=== PATIENT | female | born 1945 | race Caucasian/White ===

== ENCOUNTER 2019-11-25 17:57 | Inpatient (IN) | payer OTHER ==
[~2019-11-25] VITALS: Ht 152.4 cm; Wt 81.8 kg
--- NOTE | 2019-11-25 18:00 | NUR ---
BIBRA from home c/o chest discomfort and hypoglycemia BS=40 ANALYTICS LEADER A13-327td and ASA 325mg given in the field, new SN=043PN/DL. RR is even and unlabored with NAD noted. Skin is warm and dry. Placed on the monitor. CASSY mckenna at BS for eval.
--- NOTE | 2019-11-25 18:08 | NUR ---
PT SEEN AND EXAMINED BY .
--- NOTE | 2019-11-25 18:10 | NUR ---
TECH AT BEDSIDE FOR EKG.
--- NOTE | 2019-11-25 18:13 | NUR ---
CARE ANALYST AT BEDSIDE FOR XRAY.
[2019-11-25 18:28] LABS: BASOPHILS # (AUTO) 0.1 /CMM (0.0-0.2); BASOPHILS % (AUTO) 0.6 % (0.0-2.0); EOSINOPHILS % (AUTO) 1.8 % (0.0-6.0); HEMATOCRIT 34 % (33-45); LYMPHOCYTES # (AUTO) 1.5 /CMM (0.8-4.8); LYMPHOCYTES % (AUTO) 18.2 % (20.0-44.0); MEAN CORPUSCULAR HGB CONC 32 g/dl (31.0-36.0); MEAN CORPUSCULAR VOLUME 81 fL (82-100); MONOCYTES # (AUTO) 0.6 /CMM (0.1-1.30); MONOCYTES % (AUTO) 7.2 % (2.0-12.0); NEUTROPHILS # (AUTO) 5.8 /CMM (1.8-8.9); NEUTROPHILS % (AUTO) 72.2 % (43.0-81.0); PLATELET COUNT (AUTO) 199 /CMM (150-450); RED BLOOD CELL COUNT(AUTO) 4.23 MIL/uL (4.0-5.2); WHITE BLOOD COUNT (AUTO) 8.1 K/uL (4.3-11.0)
[2019-11-25 18:36] LABS: CALCIUM, SERUM 8.9 mg/dL (8.5-10.1); CREATININE 0.8 mg/dL (0.6-1.3); POTASSIUM 3.4 mmol/L (3.5-5.1)
--- NOTE | 2019-11-25 19:06 | NUR ---
REPORT GIVEN TO NINFA MARTINS FOR KENTRELL.
[2019-11-25] MEDS ORDERED: ASPIRIN 325 MG TABLET PO ONE (19:30)
[2019-11-25] MEDS ORDERED: ASPIRIN 325 MG TABLET ONE (19:33)
[2019-11-25] MEDS ORDERED: DEXTROSE 50%-WATER 50 ML DISP.SYRIN ONE (19:57)
--- NOTE | 2019-11-25 20:02 | NUR ---
D50 IV GIVEN VIA IV PER MD'S VERBAL ORDER FOR 45 BLOOD SUGAR.
--- NOTE | 2019-11-25 20:21 | NUR ---
COIVD SWAB COLLECTED AND SENT TO THE LAB.
[2019-11-25] MEDS ORDERED: FUROSEMIDE 40 MG/4 ML VIAL IV ONE (20:30)
[2019-11-25] MEDS ORDERED: DEXTROSE 50%-WATER 50 ML DISP.SYRIN IVP ONE (20:30)
[2019-11-25] MEDS ORDERED: FUROSEMIDE 40 MG/4 ML VIAL ONE (20:37)
--- NOTE | 2019-11-25 21:03 | NUR ---
CALLED [facility], PAGED JULIANA
--- NOTE | 2019-11-25 21:51 | NUR ---
PATIENT AMBULATED TO RESTROOM WITH A STEADY GAIT.
[2019-11-25] MEDS ORDERED: ACETAMINOPHEN 325 MG TABLET PO PRN (22:00)
[2019-11-25] MEDS ORDERED: POTASSIUM CL. PREMIX PERIPHER. 50 ML IV SCH (22:00)
[2019-11-25] MEDS ORDERED: Z GUARD REMEDY 2 OZ OINT TP PRN (22:00)
[2019-11-25] MEDS ORDERED: ONDANSETRON HCL/PF 4 MG/2 ML VIAL IVP PRN (22:00)
[2019-11-25] MEDS ORDERED: ZOLPIDEM TARTRATE 5 MG TABLET PO PRN (22:00)
[2019-11-25] MEDS ORDERED: MAG HYDROX/AL HYDROX/SIMETH 30 ML UDC PO PRN (22:00)
[2019-11-25] MEDS ORDERED: MAGNESIUM HYDROXIDE 30 ML UDC PO PRN (22:00)
--- NOTE | 2019-11-25 22:34 | NUR ---
[phone] JAMARI, GRAND SON
--- NOTE | 2019-11-25 22:42 | NUR ---
BLU IS GRANDSON, PHONE # [phone]
--- NOTE | 2019-11-25 22:43 | NUR ---
SEEN BY JULIANA ARCE
--- NOTE | 2019-11-25 22:53 | NUR ---
PATIENT ATE 1.5 TUNA SANDWICHES
--- NOTE | 2019-11-25 23:07 | NUR ---
REPORT GIVEN TO LISA OCASIO FOR KENTRELL.
[2019-11-25 23:17] VITALS: BP 156/83
--- NOTE | 2019-11-25 23:17 | NUR ---
LINEN SORTER OPENING NOTES RECEIVED PATIENT FROM E.RSantosh ON A STRETCHER, AWAKE, CONSCIOUS, COOPERATIVE, A/0 X4, ABLE TO AMBULATE BY HER SELF, BREATHING AT ROOM AIR, UNLABORED BREATHING, NO SIGNS OF RESPIRATORY DISTRESS, IV ACCESS ON LEFT AC #20G, V/S TAKEN, BP- 156/83, HR- 87, T- 98.0, RR- 18, O2 SAT 96%, SIDE RAILS UP FOR SAFETY,
--- NOTE | 2019-11-26 01:15 | NUR ---
PRODUCTION CLOTH CUTTER NOTES TALKED TO DR. ANDREWS. TOLD HIM WE ATTEMPTED TWICE IV INSERTION FOR HER POTASSIUM CHLORIDE MEDICATION. PATIENT REFUSED ANOTHER INSERTION. I ASKED DR. ANDREWS IF WE CAN SWITCH TO PO MED INSTEAD. HE TOLD ME TO ORDER PO 40 MEQ KCL.
[2019-11-26] MEDS ORDERED: POTASSIUM CHLORIDE 20 MEQ TAB.PRT.SR PO ONE (01:30)
[2019-11-26 04:00] VITALS: BP 136/86
[2019-11-26 06:41] LABS: BASOPHILS % (AUTO) 0.6 % (0.0-2.0); EOSINOPHILS % (AUTO) 1.8 % (0.0-6.0); HEMATOCRIT 35 % (33-45); HEMOGLOBIN 11.3 g/dL (11.5-14.8); LYMPHOCYTES # (AUTO) 1.6 /CMM (0.8-4.8); LYMPHOCYTES % (AUTO) 20.2 % (20.0-44.0); MEAN CORPUSCULAR HGB CONC 32 g/dl (31.0-36.0); MEAN CORPUSCULAR VOLUME 79 fL (82-100); MONOCYTES # (AUTO) 0.6 /CMM (0.1-1.30); MONOCYTES % (AUTO) 7.4 % (2.0-12.0); NEUTROPHILS # (AUTO) 5.7 /CMM (1.8-8.9); PLATELET COUNT (AUTO) 223 /CMM (150-450); WHITE BLOOD COUNT (AUTO) 8.2 K/uL (4.3-11.0)
[2019-11-26 06:55] LABS: CALCIUM, SERUM 9.2 mg/dL (8.5-10.1); CREATININE 0.7 mg/dL (0.6-1.3); MAGNESIUM 2.1 mg/dL (1.8-2.4); PHOSPHORUS 3.3 mg/dL (2.5-4.9); POTASSIUM 3.9 mmol/L (3.5-5.1)
--- NOTE | 2019-11-26 06:58 | NUR ---
ELECTROSTATIC POWDER COATING TECHNICIAN CLOSING NOTES ENDORSED PATIENT AWAKE, CONSCIOUS, COOPERATIVE, A/0 X4, ABLE TO AMBULATE BY HER SELF, BREATHING AT ROOM AIR, UNLABORED BREATHING, NO SIGNS OF RESPIRATORY DISTRESS, IV ACCESS ON LEFT AC #20G, NO COMPLAINTS OF PAIN, DUE MEDS GIVEN, SIDE RAILS UP FOR SAFETY,
[2019-11-26 08:00] VITALS: BP 145/74
--- NOTE | 2019-11-26 08:00 | NUR ---
SCARFING MACHINE OPERATOR OPENING NOTES RECEIVED PATIENT AWAKE, CONSCIOUS, COOPERATIVE, A/0 X4, ABLE TO AMBULATE BY HER SELF,WITH BRP.VINCENTIAN SPEAKING.BREATHING ON ROOM AIR, UNLABORED BREATHING, NO SIGNS OF RESPIRATORY DISTRESS, IV ACCESS ON LEFT AC #20G, DENIES CHEST PAIN ON TELE WITH SR HR 86. CALL LIGHT PLACED WITHIN REACH.
[2019-11-26] MEDS: POTASSIUM CHLORIDE 20 MEQ TAB.PRT.SR PO SCH ×3 (08:42→10:53)
[2019-11-26] MEDS: FUROSEMIDE 40 MG/4 ML VIAL IV SCH ×3 (08:42→16:23)
[2019-11-26] MEDS: ASPIRIN 81 MG TAB.CHEW PO SCH (08:42)
[2019-11-26] MEDS: ENOXAPARIN SODIUM 40 MG/0.4 ML DISP.SYRIN SQ SCH (08:43)
[2019-11-26] MEDS ORDERED: FUROSEMIDE 40 MG/4 ML VIAL IV SCH (09:00)
[2019-11-26] MEDS ORDERED: MEMA10TA56 PO (09:21)
[2019-11-26] MEDS ORDERED: LEVO25TA9 PO (09:21)
[2019-11-26] MEDS ORDERED: INSU100V36 SQ (09:21)
[2019-11-26] MEDS ORDERED: CARV3.122 PO (09:21)
[2019-11-26] MEDS ORDERED: LISI-603 PO (09:21)
[2019-11-26] MEDS ORDERED: ASPI-1169 PO (09:21)
[2019-11-26] MEDS ORDERED: ATOR40TA PO (09:21)
[2019-11-26] MEDS ORDERED: CLOP75TA15 PO (09:21)
[2019-11-26] MEDS ORDERED: FURO20TA4 PO (09:21)
[2019-11-26] MEDS ORDERED: SENN-175 PO (09:21)
[2019-11-26] MEDS ORDERED: DEXTROSE 50%-WATER 50 ML DISP.SYRIN IV PRN (11:30)
[2019-11-26] MEDS: INSULIN REGULAR, HUMAN 100 UNIT/ML 3 ML VIAL SQ PRN ×2 (11:54→21:24)
--- NOTE | 2019-11-26 12:00 | NUR ---
Pt brought down for CT ANGIO with 3D image. Consent signed. PO Meds due at 11AM held at this time and will administer as soon as she comes back from CT.
[2019-11-26] MEDS ORDERED: IV NS 0.9% 250 ML IV ONE (12:09)
[2019-11-26] MEDS ORDERED: IOHEXOL-350 100 ML VIAL IV ONE (12:09)
[2019-11-26] MEDS ORDERED: METOPROLOL TARTRATE INJ 5 MG/5 ML AMPUL ONE ×2 (12:14→12:42)
[2019-11-26] MEDS: BLOOD SUGAR DIAGNOSTIC 1 EACH STRIP IN SCH ×3 (12:18→21:15)
[2019-11-26] MEDS: METOPROLOL TARTRATE INJ 5 MG/5 ML AMPUL IVP PRN ×8 (12:28→13:03)
[2019-11-26] MEDS ORDERED: NITROGLYCERIN 0.4 MG/TAB BOTTLE SL ONE (12:30)
--- NOTE | 2019-11-26 13:26 | NUR ---
PT CAME BACK FROM CT WITH STABLE V/S VIA WHEELCHAIR .PT WENT TO THE BATHROOM.WILL ADMINISTER HER PO MEDS.
[2019-11-26] MEDS: CARVEDILOL 3.125 MG TABLET PO SCH ×2 (14:08→21:15)
[2019-11-26] MEDS: LEVOTHYROXINE SODIUM 25 MCG TABLET PO SCH (14:08)
[2019-11-26] MEDS: LISINOPRIL (20MG) 20 MG TABLET PO SCH (14:08)
[2019-11-26] MEDS: CLOPIDOGREL BISULFATE 75 MG TABLET PO SCH (14:09)
[2019-11-26] MEDS: MEMANTINE HCL 5 MG TABLET PO SCH (14:09)
[2019-11-26 15:27] VITALS: BP 112/53
--- NOTE | 2019-11-26 18:39 | NUR ---
PT DENIES ANY CHEST PAIN DURING THE SHIFT.AMBULATING IN THE HALLWAY AND HER ROOM WITH NO DISTRESS NOTED. WILL CONTINUE TO MONITOR.CALL LIGHT PLACED WITHIN REACH.
[2019-11-26 20:00] VITALS: BP_SYST 133; BP_DIAS 64; BP_DIAS 71
--- NOTE | 2019-11-26 20:00 | NUR ---
RN NOTES RECEIVED PT. AWKE ON BED, A/OX4, AMBULATORY, ICELANDIC SPEAKING, SR WITH BBB ON TELE MONITOR HR-75, NOT IN DISTRESS, NO PAIN NOTED, CALL LIGHT WITHIN REACH, SIDERAILSUPX2, CONTINUE TO MONITOR
[2019-11-26] MEDS: SENNOSIDES 8.6 MG TABLET PO SCH ×2 (21:00→21:15)
--- NOTE | 2019-11-26 21:00 | NUR ---
RN NOTES PT. REFUSED TO TAKE HER SENOKOT 17.2MG PO, PT STATED THAT "SHE TAKE IT IN THE MORNING"
[2019-11-26] MEDS: ATORVASTATIN 40 MG TABLET PO SCH (21:14)
--- NOTE | 2019-11-26 21:15 | NUR ---
RN NOTES COMPLAINED OF HEADACHE, TYLENOL 650MG PO GIVEN ORDERED
[2019-11-27] VITALS: BP 103/68
[2019-11-27 04:00] VITALS: BP 134/74
[2019-11-27] MEDS: HYDROCODONE/APAP 5/325MG TABLET PO PRN ×3 (04:00→16:07)
--- NOTE | 2019-11-27 06:40 | NUR ---
RN NOTES AWAKE, MORNING CARE RENDERED, DENIES PAIN, NO SOB, CALL LIGHT WITHIN REACH, SIDERAILSUPX2, PT. NEEDS ATTENDED
[2019-11-27 06:44] LABS: BASOPHILS # (AUTO) 0.1 /CMM (0.0-0.2); BASOPHILS % (AUTO) 0.9 % (0.0-2.0); HEMATOCRIT 37 % (33-45); HEMOGLOBIN 11.8 g/dL (11.5-14.8); LYMPHOCYTES # (AUTO) 1.7 /CMM (0.8-4.8); LYMPHOCYTES % (AUTO) 24.8 % (20.0-44.0); MEAN CORPUSCULAR HGB CONC 32 g/dl (31.0-36.0); MEAN CORPUSCULAR VOLUME 80 fL (82-100); MONOCYTES # (AUTO) 0.6 /CMM (0.1-1.30); MONOCYTES % (AUTO) 8.9 % (2.0-12.0); NEUTROPHILS # (AUTO) 4.3 /CMM (1.8-8.9); NEUTROPHILS % (AUTO) 62.4 % (43.0-81.0); PLATELET COUNT (AUTO) 230 /CMM (150-450); RED BLOOD CELL COUNT(AUTO) 4.64 MIL/uL (4.0-5.2); WHITE BLOOD COUNT (AUTO) 6.8 K/uL (4.3-11.0)
[2019-11-27] MEDS: LEVOTHYROXINE SODIUM 25 MCG TABLET PO SCH (06:48)
[2019-11-27] MEDS: INSULIN REGULAR, HUMAN 100 UNIT/ML 3 ML VIAL SQ PRN ×3 (06:50→22:06)
[2019-11-27] MEDS: BLOOD SUGAR DIAGNOSTIC 1 EACH STRIP IN SCH ×4 (06:51→22:06)
[2019-11-27 07:14] LABS: ALANINE AMINOTRANSFERASE 37 U/L (12-78); ALBUMIN 3.7 g/dL (3.4-5.0); ALKALINE PHOSPHATASE 122 U/L (46-116); ASPARTATE AMINOTRANSFERASE 26 U/L (15-37); BILIRUBIN,TOTAL 0.6 mg/dL (0.2-1.0); CALCIUM, SERUM 9.4 mg/dL (8.5-10.1); CARBON DIOXIDE 31 mmol/L (21-32); CHLORIDE 98 mmol/L (98-107); CREATININE 0.9 mg/dL (0.6-1.3); GLUCOSE 155 mg/dL (74-106); MAGNESIUM 2.3 mg/dL (1.8-2.4); PHOSPHORUS 5.1 mg/dL (2.5-4.9); POTASSIUM 4.7 mmol/L (3.5-5.1); SODIUM SERUM 136 mmol/L (136-145); TOTAL PROTEIN, SERUM 7.1 g/dL (6.4-8.2); UREA NITROGEN, BLOOD 24 mg/dL (7-18)
[2019-11-27 08:00] VITALS: BP 126/56
--- NOTE | 2019-11-27 08:00 | NUR ---
STRAIGHTENER HAND OPENING NOTES RECEIVED PATIENT AWAKE, CONSCIOUS, COOPERATIVE, A/0 X4, ABLE TO AMBULATE BY HER SELF,WITH BRP.BELGIAN SPEAKING.BREATHING ON ROOM AIR, UNLABORED BREATHING, NO SIGNS OF RESPIRATORY DISTRESS, IV ACCESS ON LEFT AC #20G, DENIES CHEST PAIN ON TELE WITH SR HR 86. CALL LIGHT PLACED WITHIN REACH.
[2019-11-27] MEDS ORDERED: CARVEDILOL 3.125 MG TABLET PO SCH (09:00)
[2019-11-27] MEDS: MEMANTINE HCL 5 MG TABLET PO SCH (09:06)
[2019-11-27] MEDS: ASPIRIN 81 MG TAB.CHEW PO SCH (09:06)
[2019-11-27] MEDS: SENNOSIDES 8.6 MG TABLET PO SCH ×2 (09:06→21:48)
[2019-11-27] MEDS: CLOPIDOGREL BISULFATE 75 MG TABLET PO SCH (09:06)
[2019-11-27] MEDS: LISINOPRIL (20MG) 20 MG TABLET PO SCH (09:07)
[2019-11-27] MEDS: ENOXAPARIN SODIUM 40 MG/0.4 ML DISP.SYRIN SQ SCH (09:13)
[2019-11-27] MEDS: CARVEDILOL 6.25 MG TABLET PO SCH ×2 (09:14→21:50)
[2019-11-27] MEDS: FUROSEMIDE 40 MG/4 ML VIAL IV SCH ×3 (09:14→16:07)
[2019-11-27 16:00] VITALS: BP 104/52
--- NOTE | 2019-11-27 18:39 | NUR ---
Pt comfortably resting ,lying in bed denying any pain or distress. RLE discomfort was relieved by PRN Offerle and warm compress. Call light placed within reach.
--- NOTE | 2019-11-27 19:16 | NUR ---
MS RN OPENING NOTES PATIENT SLEEPING, EASY TO AWAKEN. A/OX4, FIJIAN SPEAKING. ON RA; NO S/S OF ACUTE RESPIRATORY DISTRESS; BREATHING IS EVEN AND UNLABORED. NO S/S OF PAIN NOTED. IV PRESENT ON RIGHT AC, SIZE 18 & LEFT AC, SIZE 20; BOTH INTACT/PATENT AND HEP LOCKED. SAFETY MEASURES IN PLACE AND PATIENT'S NEEDS MET. BED LOCKED, SIDE RAILS X2, CALL LIGHT WITHIN REACH. WILL CONTINUE TO MONITOR.
[2019-11-27 20:00] VITALS: BP 112/54
[2019-11-27] MEDS: ATORVASTATIN 40 MG TABLET PO SCH (21:48)
[2019-11-28] MEDS: BLOOD SUGAR DIAGNOSTIC 1 EACH STRIP IN SCH ×4 (06:30→21:16)
[2019-11-28] MEDS: INSULIN REGULAR, HUMAN 100 UNIT/ML 3 ML VIAL SQ PRN ×3 (06:31→21:24)
[2019-11-28] MEDS: LEVOTHYROXINE SODIUM 25 MCG TABLET PO SCH (06:32)
[2019-11-28 06:46] LABS: BASOPHILS # (AUTO) 0.1 /CMM (0.0-0.2); EOSINOPHILS % (AUTO) 3.5 % (0.0-6.0); HEMATOCRIT 38 % (33-45); HEMOGLOBIN 12.2 g/dL (11.5-14.8); LYMPHOCYTES # (AUTO) 1.5 /CMM (0.8-4.8); LYMPHOCYTES % (AUTO) 22.1 % (20.0-44.0); MEAN CORPUSCULAR HGB CONC 32 g/dl (31.0-36.0); MEAN CORPUSCULAR VOLUME 80 fL (82-100); MONOCYTES # (AUTO) 0.6 /CMM (0.1-1.30); MONOCYTES % (AUTO) 8.1 % (2.0-12.0); NEUTROPHILS # (AUTO) 4.5 /CMM (1.8-8.9); NEUTROPHILS % (AUTO) 65.3 % (43.0-81.0); PLATELET COUNT (AUTO) 246 /CMM (150-450); RED BLOOD CELL COUNT(AUTO) 4.73 MIL/uL (4.0-5.2); WHITE BLOOD COUNT (AUTO) 6.9 K/uL (4.3-11.0)
--- NOTE | 2019-11-28 06:46 | NUR ---
MS OCASIO NOTES PATIENT SENT TO OR FOR PEG PLACEMENT Addendum: 11/28/19 at 0724 by TOBIAS JUÁREZ RN WRONG PATIENT
[2019-11-28 07:21] LABS: ALBUMIN 3.8 g/dL (3.4-5.0); BILIRUBIN,TOTAL 0.6 mg/dL (0.2-1.0); CALCIUM, SERUM 9.2 mg/dL (8.5-10.1); CREATININE 1.1 mg/dL (0.6-1.3); MAGNESIUM 2.3 mg/dL (1.8-2.4); POTASSIUM 4.9 mmol/L (3.5-5.1); TOTAL PROTEIN, SERUM 7.3 g/dL (6.4-8.2)
--- NOTE | 2019-11-28 07:25 | NUR ---
MS RN CLOSING NOTES PATIENT AWAKE IN BED. ON RA; NO S/S OF ACUTE RESPIRATORY DISTRESS; BREATHING IS EVEN AND UNLABORED. NO S/S OF PAIN NOTED. IV PRESENT ON RIGHT AC, SIZE 18 & LEFT AC, SIZE 20; BOTH INTACT/PATENT AND HEP LOCKED. SAFETY MEASURES IN PLACE AND PATIENT'S NEEDS MET. BED LOCKED, SIDE RAILS X2, CALL LIGHT WITHIN REACH. ENDORSED TO DAY SHIFT RN PLAN OF CARE.
[2019-11-28 08:00] VITALS: BP 135/62
--- NOTE | 2019-11-28 08:00 | NUR ---
MS RN AM NOTES PATIENT AWAKE IN BED. ON RA; NO S/S OF ACUTE RESPIRATORY DISTRESS; BREATHING IS EVEN AND UNLABORED. WITH C/O RLE PAIN -NORCO GIVEN FOR PAIN MGT. IV PRESENT ON RIGHT AC, SIZE 18 & LEFT AC, SIZE 20; BOTH INTACT/PATENT AND HEP LOCKED. SAFETY MEASURES IN PLACE AND PATIENT'S NEEDS MET. BED LOCKED, SIDE RAILS X2, CALL LIGHT WITHIN REACH.
[2019-11-28] MEDS: HYDROCODONE/APAP 5/325MG TABLET PO PRN (08:34)
[2019-11-28] MEDS: MEMANTINE HCL 5 MG TABLET PO SCH (08:34)
[2019-11-28] MEDS: ASPIRIN 81 MG TAB.CHEW PO SCH (08:34)
[2019-11-28] MEDS: CLOPIDOGREL BISULFATE 75 MG TABLET PO SCH (08:34)
[2019-11-28] MEDS: LISINOPRIL (20MG) 20 MG TABLET PO SCH (08:34)
[2019-11-28] MEDS: SENNOSIDES 8.6 MG TABLET PO SCH ×2 (08:34→17:26)
[2019-11-28] MEDS: CARVEDILOL 6.25 MG TABLET PO SCH ×2 (08:35→21:00)
[2019-11-28] MEDS: ENOXAPARIN SODIUM 40 MG/0.4 ML DISP.SYRIN SQ SCH (08:35)
[2019-11-28] MEDS: FUROSEMIDE 40 MG/4 ML VIAL IV SCH ×3 (10:41→17:12)
[2019-11-28 16:00] VITALS: BP 113/53
--- NOTE | 2019-11-28 17:26 | NUR ---
pt is so anxious that she wants to take her senokot 8.6 mg 2 tabs for 2100 now inspite of explaining that it is not due yet.Will inform the night nurse.Encouraged fluids and instructed pt to ambulate often.
--- NOTE | 2019-11-28 19:36 | NUR ---
MS RN OPENING NOTES PATIENT RECEIVED RESTING IN BED COMFORTABLY; A/OX4, YI SPEAKING; BREATHING EVEN AND UNLABORED; PATIENT TOLERATING ROOM AIR WELL; NO SOB NOTED; PER AM SHIFT, PATIENT AMBULATORY; L AC #20, INTACT AND PATENT, FLUSHING WELL; NO S/S OF REDNESS OR INFILTRATION NOTED; SAFETY PRECAUTIONS IMPLEMENTED; BED LOCKED IN LOW POSITION; SIDE RAILSX2; CALL LIGHT WITHIN REACH; WILL CONT TO MONITOR
[2019-11-28 20:00] VITALS: BP 103/54
[2019-11-28 20:11] VITALS: BP 103/54
[2019-11-28] MEDS: ATORVASTATIN 40 MG TABLET PO SCH (21:16)
--- NOTE | 2019-11-29 06:15 | NUR ---
MS RN NOTES PATIENT COMPLAINING OF CHEST PAIN; PATIENT ON 2LPM VIA NASAL CANNULA WITH HOB ELEVATED; VITALS: BP: 124/54 HR: 74, O2SAT: 100% RR: 16 TEMP: 97.3F (TYMPANIC); CHARGE NURSE AWARE; MD AWARE; STAT EKG ORDERED; PATIENT A/OX4, GERMAN SPEAKING, REQUESTED FOR ACCU CHECK TO BE DONE; BS 189 MG/DL; WILL CONT TO MONITOR
[2019-11-29] MEDS: BLOOD SUGAR DIAGNOSTIC 1 EACH STRIP IN SCH ×2 (06:32→11:30)
[2019-11-29] MEDS: INSULIN REGULAR, HUMAN 100 UNIT/ML 3 ML VIAL SQ PRN ×2 (06:34→11:34)
--- NOTE | 2019-11-29 06:53 | NUR ---
MS NINFA CLOSING NOTES PATIENT RESTING IN BED COMFORTABLY; A/OX4, BHUTANESE SPEAKING; BREATHING EVEN AND UNLABORED; PATIENT ON 2LPM VIA NC; NO SOB NOTED; NO DISTRESS NOTED; PATIENT VERBALIZED FEELING WELL; PATIENT ABLE TO MAKE NEEDS KNOWN; L AC #20 SL INTACT AND PATENT, FLUSHING WELL; NO S/S OF REDNESS OR INFILTRATION NOTED; ALL NEEDS RENDERED; SAFETY PRECAUTIONS IMPLEMENTED; BED LOCKED IN LOW POSITION; BED ALARM ON; SIDE RAILSX2; CALL LIGHT WITHIN EASY REACH; WILL ENDORSE KENTRELL TO ONCOMING SHIFT Addendum: 11/29/19 at 0654 by NANCY SILVA RN TOLERATING 2LPM VIA NASAL CANNULA WELL; CHARGE NURSE AWARE; AWAITING EKG; WILL INFORM DAY SHIFT Addendum: 11/29/19 at 0737 by NANCY SILVA RN PATIENT IV ACCESS REMOVED; NO IV ACCESS OBTAINED AT THIS TIME; CHARGE NURSE AWARE; PATIENT DOES NOT WANT FOR US TO ATTEMPT IV ACCESS AT THIS TIME; DAY SHIFT INFORMED;
--- NOTE | 2019-11-29 07:07 | NUR ---
MS RN OPENING NOTE RECEIVED PT AWAKE IN BED AT THIS TIME. A/O X 4, NO SOB NOTED, NO S/S OF ANY ACUTE DISTRESS NOTED. NO C/O PAIN AT THIS TIME. PT ON OXYGEN 2LPM VIA NC. RESPIRATIONS ARE EVEN AND UNLABORED WITH EQUAL RISE AND FALL IN CHEST. PT ABLE TO MAKE NEEDS KNOWN. NO IV ACCESS NOTED.ASPIRATION AND SAFETY PRECAUTION IN PLACE. BED IN LOWEST LOCKED POSITION, HOB ELEVATED, RAILS UP X 2, CALL LIGHT WITHIN REACH. WILL CONTINUE TO MONITOR
--- NOTE | 2019-11-29 07:30 | NUR ---
MS RN NOTES PATIENT NOTED WITH NO IV ACCESS; BOTH ROB AND MO, CHARGE NURSES MADE AWARE; NURSING RUBBER CUTTER ALSO MADE AWARE FOR POSSIBLE MIDLINE; OSITO TORIBIO MADE AWARE TO ORDER MIDLINE INSERTION. PER DOCTOR MALU, PT IS PENDING POSSIBLE DISCHARGE. NO NEW ORDERS AT THIS TIME. WILL CONTINUE TO MONITOR
--- NOTE | 2019-11-29 07:43 | NUR ---
MS RN NOTES PATIENT HAS NO IV ACCESS AT THIS TIME; BOTH CHARGE NURSES AWARE; NURSING FACING SLITTER ALSO AWARE FOR POSSIBLE MIDLINE; NINFA TAN AWARE
[2019-11-29 07:48] LABS: BASOPHILS % (AUTO) 0.6 % (0.0-2.0); EOSINOPHILS % (AUTO) 3.6 % (0.0-6.0); HEMATOCRIT 40 % (33-45); HEMOGLOBIN 12.8 g/dL (11.5-14.8); LYMPHOCYTES # (AUTO) 1.6 /CMM (0.8-4.8); LYMPHOCYTES % (AUTO) 22.9 % (20.0-44.0); MEAN CORPUSCULAR HGB CONC 32 g/dl (31.0-36.0); MEAN CORPUSCULAR VOLUME 80 fL (82-100); MONOCYTES # (AUTO) 0.5 /CMM (0.1-1.30); MONOCYTES % (AUTO) 7.2 % (2.0-12.0); NEUTROPHILS # (AUTO) 4.5 /CMM (1.8-8.9); NEUTROPHILS % (AUTO) 65.7 % (43.0-81.0); PLATELET COUNT (AUTO) 246 /CMM (150-450); RED BLOOD CELL COUNT(AUTO) 5.02 MIL/uL (4.0-5.2); WHITE BLOOD COUNT (AUTO) 6.8 K/uL (4.3-11.0)
[2019-11-29 08:00] VITALS: BP 119/60
[2019-11-29 08:07] LABS: ALBUMIN 3.8 g/dL (3.4-5.0); BILIRUBIN,TOTAL 0.7 mg/dL (0.2-1.0); CALCIUM, SERUM 9.2 mg/dL (8.5-10.1); MAGNESIUM 2.4 mg/dL (1.8-2.4); PHOSPHORUS 4.3 mg/dL (2.5-4.9); POTASSIUM 4.6 mmol/L (3.5-5.1); TOTAL PROTEIN, SERUM 7.4 g/dL (6.4-8.2)
[2019-11-29] MEDS: LEVOTHYROXINE SODIUM 25 MCG TABLET PO SCH (08:32)
[2019-11-29] MEDS: MEMANTINE HCL 5 MG TABLET PO SCH (08:42)
[2019-11-29] MEDS: CARVEDILOL 6.25 MG TABLET PO SCH (08:43)
[2019-11-29] MEDS: SENNOSIDES 8.6 MG TABLET PO SCH (08:43)
[2019-11-29] MEDS: CLOPIDOGREL BISULFATE 75 MG TABLET PO SCH (08:44)
[2019-11-29] MEDS: ASPIRIN 81 MG TAB.CHEW PO SCH (08:44)
[2019-11-29] MEDS: LISINOPRIL (20MG) 20 MG TABLET PO SCH (08:44)
[2019-11-29] MEDS: ENOXAPARIN SODIUM 40 MG/0.4 ML DISP.SYRIN SQ SCH (08:45)
[2019-11-29] MEDS ORDERED: FUROSEMIDE 40 MG TABLET PO SCH (09:30)
[2019-11-29] MEDS ORDERED: CARV6.252 PO (13:27)
[2019-11-29] MEDS ORDERED: FURO40TA5 PO (13:27)
[2019-11-29 16:00] VITALS: BP 113/50
--- NOTE | 2019-11-29 16:22 | NUR ---
MS PUBLICATIONS SALES REPRESENTATIVE NOTES PT DISCHARGED TO HOME AT THIS TIME. PT IN STABLE CONDITION, ALL NEEDS, CARE, MEDICATIONS AND TREATMENT ADMINISTERED ANTICIPATED PER ORDER. PT DISCHARGE INSTRUCTIONS PROVIDED. PT VERBALIZE UNDERSTANDING. BELONGINGS ACCOUNTED FOR, SIGNED BY PATIENT AND FILED IN CHART. PT TRANSP[facility]ED TO [facility] BY SARAH GUILLEN ON WHEEL CHAIR. PT PICKED UP IN PRIVATE CAR BY BLU PINEDA)
== END 2019-11-29 17:00 | disposition home or self-care (01) | DRG 194 ==
LOC: ER 18:02 → TELE 22:47 → MED 11-27 09:55
PROVIDERS: ADMIT Family Medicine; ATTEND Nurse Practitioner Acute Care
DX: I11.0 Hypertensive heart disease with heart failure (principal); J98.11 Atelectasis; I25.10 Atherosclerotic heart disease of native coronary artery without angina pectoris; I50.23 Acute on chronic systolic (congestive) heart failure; E11.649 Type 2 diabetes mellitus with hypoglycemia without coma; E87.6 Hypokalemia; Z95.1 Presence of aortocoronary bypass graft; Z95.5 Presence of coronary angioplasty implant and graft; D63.8 Anemia in other chronic diseases classified elsewhere
CPT/HCPCS: 36415; 71045-TC; 75574; 80048-TC; 80053-TC; 80061-TC; 82728-TC; 82962-TC; 83540-TC; 83735-TC; 83880; 84100-TC; 84484-TC; 85025-TC; 87081-TC; 93307-TC; 93970-TC; C9803-CS; G0378; J1650; J1815; J1940; J3480; J3490; J7040; J7050; Q9967